=== PATIENT | female | born 1960 | race Caucasian/White ===

== ENCOUNTER 2018-04-02 01:52 | Emergency (ER) | payer OTHER ==
--- NOTE | 2018-04-02 02:26 | ERPHSYRPT ---
- History of Present Illness Time Seen by Provider: 04/02/18 02:15 Source: patient Exam Limitations: no limitations Patient Subjective Stated Complaint: pt stated she woke up to use the bathroom and could feel her heart go into "afib" c/o palpitations, anxiousness, and slight SOB. Triage Nursing Assessment: A/O X4 speech clear, resp easy. no c/o chest pain or disc. O2 sat 98%, monitor 81-114 afib Physician History: This is a 58-year-old white female with history of bronchitis, pneumonia, arrhythmia (atrial fibrillation), hyperlipidemia, high blood pressure, diverticulosis, GERD, hernia, fractures, mitral valve prolapse She states that she gets episodes of atrial fibrillation every year or 2. But normally has a regular rhythm. She states that she was in bed was getting ready to get up to go to the bathroom when she started feeling as if her heart was irregular. She denies any chest pain any shortness of breath she has no nausea no vomiting. Past medical history includes bronchitis, pneumonia, arrhythmia, hyperlipidemia , high blood pressure, diverticulosis, GERD, hernia, fractures, mitral valve prolapse Past surgical history includes cardioversion, several ablation, D&C, tonsillectomy and adenoidectomy Social history patient denies tobacco alcohol or illicit drug use she denies caffeine intake Patient is chronically on Elequis Timing/Duration: today (just prior to arrival) Severity: moderate Modifying Factors: Improves With: nothing Associated Symptoms: other (palpation and irregular heart rate), No nausea, No vomiting, No abdominal pain, No shortness of breath, No heartburn, No diaphoresis, No cough, No chills, No chest pain, No fever, No headaches, No loss of appetite, No malaise, No rash, No syncope, No seizure, No weakness Allergies/Adverse Reactions: Penicillins Allergy (Verified 04/21/16 14:45) Home Medications: Multivitamin [Multivitamins] 1 tab PO DAILY 08/17/14 [History] PANTOPRAZOLE 40 mg Tablet [Protonix 40MG Tablet] 40 mg PO DAILY 08/17/14 [ History] Metoprolol Succinate 25 mg Xl* [Toprol-Xl 25MG Tablets] 25 mg PO DAILY [History] Potassium Gluconate 100 mg PO DAILY 04/21/16 [History] Hx Tetanus, Diphtheria Vaccination/Date Given: No Hx Influenza Vaccination/Date Given: Yes Hx Pneumococcal Vaccination/Date Given: No - Review of Systems Constitutional: No Fever, No Chills Eyes: No Symptoms Ears, Nose, & Throat: No Symptoms Respiratory: No Cough, No Dyspnea Cardiac: Palpitations, No Chest Pain, No Edema, No Syncope, No Orthopnea, No PND Abdominal/Gastrointestinal: No Abdominal Pain, No Nausea, No Vomiting, No Diarrhea Genitourinary Symptoms: No Dysuria Musculoskeletal: No Back Pain, No Neck Pain Skin: No Rash Neurological: No Dizziness, No Focal Weakness, No Sensory Changes Psychological: No Symptoms Endocrine: No Symptoms All Other Systems: Reviewed and Negative - Past Medical History Pertinent Past Medical History: Yes Neurological History: No Pertinent History ENT History: No Pertinent History Cardiac History: Arrhythmia, High Cholesterol, Hypertension Respiratory History: Bronchitis, Pneumonia Endocrine Medical History: No Pertinent History Musculoskeletal History: Fractures GI Medical History: Diverticulitis, Diverticulosis, GERD, Hernia History: No Pertinent History Psycho-Social History: No Pertinent History Female Reproductive Disorders: Other Other Medical History: MVP - Past Surgical History Past Surgical History: Yes Neuro Surgical History: No Pertinent History Cardiac: No Pertinent History Respiratory: No Pertinent History Gastrointestinal: Hernia Repair Genitourinary: No Pertinent History Musculoskeletal: Orthopedic Surgery Female Surgical History: Tubal Ligation Other Surgical History: CARDIOVERSION - THERMAL ABLATION - DandC; T&A - Social History Smoking Status: Never smoker Exposure to second hand smoke: No Drug Use: none Patient Lives Alone: No - Nursing Vital Signs Nursing Vital Signs: Initial Vital Signs Temperature 97.6 F 04/02/18 01:53 Pulse Rate 86 04/02/18 01:53 Respiratory Rate 18 04/02/18 01:53 Blood Pressure 101/68 04/02/18 01:53 O2 Sat by Pulse Oximetry 98 04/02/18 01:53 Pain Scale Pain Intensity 0 - Physical Exam General Appearance: no apparent distress, alert Eye Exam: PERRL/EOMI, eyes nml inspection Ears, Nose, Throat Exam: normal ENT inspection, TMs normal, pharynx normal, moist mucous membranes Neck Exam: normal inspection, non-tender, supple, full range of motion Respiratory Exam: normal breath sounds, lungs clear, No respiratory distress Cardiovascular Exam: normal heart sounds, normal peripheral pulses, capillary refill <2 sec, No regular rate/rhythm (heart irregularly irregular), No murmur Gastrointestinal/Abdomen Exam: soft, normal bowel sounds, No tenderness, No mass Back Exam: normal inspection, normal range of motion, No CVA tenderness, No vertebral tenderness Extremity Exam: normal inspection, normal range of motion, pelvis stable Neurologic Exam: alert, oriented x 3, cooperative, production sanitizer II-XII nml as tested, normal mood/affect, nml cerebellar function, nml station & gait, sensation nml, No motor deficits Skin Exam: normal color, warm, dry, No rash SpO2 Interpretation: normal (98%) SpO2: 98 Oxygen Delivery: Room Air - Course Nursing assessment & vital signs reviewed: Yes EKG Interpreted by Me: RATE (67 bpm), A-fib, NORMAL AXIS, Other (EKG: Atrial fibrillation, 67 bpm, normal axis, no acute ST or T wave changes noted) Ordered Tests: Active Orders 24 hr Category Date Time Status Clinical Account Executive STAT Care 04/02/18 02:20 Active EKG-ER Only STAT Care 04/02/18 02:20 Active EKG-ER Only STAT Care 04/02/18 03:18 Active IV Insertion STAT Care 04/02/18 02:20 Active Pulse Oximetry (ED) STAT Care 04/02/18 02:20 Active CBC W DIFF Stat Lab 04/02/18 02:15 Completed CMP Stat Lab 04/02/18 02:15 Completed TROPONIN Q3H Lab 04/02/18 02:15 Completed TROPONIN Q3H Lab 04/02/18 05:30 Ordered TROPONIN Q3H Lab 04/02/18 08:30 Ordered TROPONIN Q3H Lab 04/02/18 11:30 Ordered TROPONIN Q3H Lab 04/02/18 14:30 Ordered Medication Summary Discontinued Medications Generic Name Dose Route Start Last Admin Trade Name Freq PRN Reason Stop Dose Admin Potassium Chloride 20 meq 04/02/18 03:28 04/02/18 03:32 Klor Con 10 Meq PO 04/02/18 03:29 20 meq STAT ONE Administration Potassium Chloride Confirm 04/02/18 03:31 Klor Con 10 Meq Administered 04/02/18 03:32 Dose 20 meq PO .[facility] ONE Lab/Rad Data: Laboratory Result Diagrams 04/02/18 02:15 04/02/18 02:15 Laboratory Results 04/02/18 04/02/18 04/02/18 Range/Units 02:15 02:15 02:15 WBC 5.8 (4.0-10.5) K/mm3 RBC 4.38 (4.1-5.4) M/mm3 Hgb 13.9 (12.0-16.0) gm/dl Hct 40.9 (35-47) % MCV 93.4 (78-100) fl MCH 31.7 (26-32) pg MCHC 34.0 (32-36) g/dl RDW 12.7 (11.5-14.0) % Plt Count 250 (150-450) K/mm3 MPV 10.5 H (6-9.5) fl Gran % 45.1 (36.0-66.0) % Eos # (Auto) 0.01 (0-0.5) Absolute Lymphs (auto) 2.53 (1.0-4.6) Absolute Monos (auto) 0.66 (0.0-1.3) Lymphocytes % 43.4 (24.0-44.0) % Monocytes % 11.3 (0.0-12.0) % Eosinophils % 0.2 (0.00-5.0) % Basophils % 0.0 (0.0-0.4) % Absolute Granulocytes 2.63 (1.4-6.9) Basophils # 0 (0-0.4) Sodium 139 (137-145) mmol/L Potassium 3.4 L (3.5-5.1) mmol/L Chloride 107 (98-107) mmol/L Carbon Dioxide 25 (22-30) mmol/L Anion Gap 10.4 (5-15) MEQ/L BUN 14 (7-17) mg/dL Creatinine 0.77 (0.52-1.04) mg/dL Estimated GFR > 60.0 ML/MIN Glucose 105 (74-106) mg/dL Calcium 9.3 (8.4-10.2) mg/dL Total Bilirubin 0.30 (0.2-1.3) mg/dL AST 22 (14-36) U/L ALT 29 (0-35) U/L Alkaline Phosphatase 89 (38-126) U/L Troponin I < 0.012 (0.000-0.034) ng/mL Serum Total Protein 6.6 (6.3-8.2) g/dL Albumin 4.0 (3.5-5.0) g/dL - Progress Progress: improved Progress Note: 04/02/18 03:36 This is a 58-year-old white female with history of bronchitis, pneumonia, arrhythmia (atrial fibrillation intermittent), hyperlipidemia, high blood pressure, diverticulosis, GERD, hernia, mitral valve prolapse. Who has had a cardioversion and thermal ablation in the past who states she is not usually in atrial fibrillation but does go into it every year or 2. She states that she's been very busy she went to [place] she just came back she states she was in bed and she started to feel a markedly irregular heart rate which she recognized as atrial fibrillation and came into the emergency room. On arrival the patient had atrial fibrillation 67 bpm patient had stable vital signs she had a pulse ox of 98% she was not any acute distress that she did not have chest pain. Patient is already on Elequis. she is also on Cardizem and metoprolol Patient was not given aspirin she did not have any chest pain Labs including CBC CMP troponin were obtained on this patient. Patient converted spontaneously to a normal sinus rhythm Second EKG obtained at April 02, 2018 at 3:22 AM Is remarkable for normal sinus rhythm 62 bpm normal axis no acute ST or T wave changes normal EKG. Patient's chemistry is remarkable for a mild decreased potassium of 3.4 otherwise normal CBC is normal troponin is less than 0.012. Patient has had no chest pain nausea or shortness of breath she is stable. She has been given 20 mEq of potassium chloride. I've discussed the patient's case with Dr. Lopez he feels that the patient can be sent home due to the fact that she is already on Cardizem metoprolol and Elequis and has a controlled rate and at this time normal sinus rhythm. Patient is to return home she is to rest she is to contact Dr. Casillas for follow -up. She has been advised that if she has any problems she is to follow-up with her family doctor or return. She is to return for acute distress or for severe symptoms. - Departure Time of Disposition: 03:41 Departure Disposition: Home Clinical Impression: Palpitations Atrial fibrillation Qualifiers: Atrial fibrillation type: unspecified Qualified Code(s): I48.91 - Unspecified atrial fibrillation Condition: Fair Critical Care Time: No Referrals: Provider,Unknown [NON-STAFF PHY W/O PRIVILEGES] - Instructions: Arrhythmias (DC), Palpitations (DC) Additional Instructions: Return home, rest, plenty of fluids. Avoid caffeine. Medications as prescribed by your family doctor. Contact your family doctor tomorrow and schedule follow-up appointment. Return for acute distress or severe symptoms. Follow-up with your family doctor or return for any problems.
[2018-04-02 02:38] LABS: Basophil (Absolute #) 0 (0-0.4); Eosinophil % 0.2 % (0.00-5.0); Eosinophil (Absolute #) 0.01 (0-0.5); Granulocyte Absolute (ANC) 2.63 (1.4-6.9); Granulocytes % 45.1 % (36.0-66.0); Hematocrit 40.9 % (35-47); Hemoglobin 13.9 gm/dl (12.0-16.0); Lymphocyte (Absolute #) 2.53 (1.0-4.6); Lymphocytes % 43.4 % (24.0-44.0); Mean Cell Volume 93.4 fl (78-100); Mean Corpuscular Hemoglobin 31.7 pg (26-32); Mean Platelet Volume 10.5 fl (6-9.5); Monocyte (Absolute #) 0.66 (0.0-1.3); Monocytes % 11.3 % (0.0-12.0); Platelet Count 250 K/mm3 (150-450); Red Blood Count 4.38 M/mm3 (4.1-5.4); Red Cell Distribution Width 12.7 % (11.5-14.0); White Blood Count 5.8 K/mm3 (4.0-10.5)
[2018-04-02 02:55] LABS: ALKALINE PHOSPHATASE 89 U/L (38-126); ANION GAP 10.4 MEQ/L (5-15); BLOOD UREA NITROGEN 14 mg/dL (7-17); CHLORIDE 107 mmol/L (98-107); Calcium 9.3 mg/dL (8.4-10.2); Carbon Dioxide 25 mmol/L (22-30); Creatinine 1 0.77 mg/dL (0.52-1.04); Glucose 105 mg/dL (74-106); Potassium 3.4 mmol/L (3.5-5.1); SGOT/AST 22 U/L (14-36); SGPT/ALT 29 U/L (0-35); SODIUM 139 mmol/L (137-145); Total Protein 6.6 g/dL (6.3-8.2)
[2018-04-02] MEDS ORDERED: Klor Con 10 MEQ PO ONE ×2 (03:28→03:31)
[2018-04-02 03:47] VITALS: BP 98/69; PULSE 64; O2SAT 94
== END 2018-04-02 04:01 | disposition home or self-care (01) ==
LOC: ED 01:52
DX: I48.91 Unspecified atrial fibrillation (principal); R00.2 Palpitations; I10 Essential (primary) hypertension; E78.5 Hyperlipidemia, unspecified; Z79.899 Other long term (current) drug therapy
CPT/HCPCS: 36000; 36415; 80053; 84484; 85025; 93005; 93041; 99284; A9270-GY

== ENCOUNTER 2019-02-07 22:09 | Emergency (ER) | payer OTHER ==
[2019-02-07 22:32] LABS: Basophil (Absolute #) 0 (0-0.4); Eosinophil % 0.1 % (0.00-5.0); Eosinophil (Absolute #) 0.01 (0-0.5); Granulocyte Absolute (ANC) 3.02 (1.4-6.9); Granulocytes % 40.6 % (36.0-66.0); Hematocrit 40.3 % (35-47); Hemoglobin 13.8 gm/dl (12.0-16.0); Lymphocyte (Absolute #) 3.62 (1.0-4.6); Lymphocytes % 48.6 % (24.0-44.0); Mean Cell Volume 92.2 fl (78-100); Mean Corpuscular Hemoglobin 31.6 pg (26-32); Mean Corpuscular Hgb Concent. 34.2 g/dl (32-36); Mean Platelet Volume 10.1 fl (6-9.5); Monocytes % 10.7 % (0.0-12.0); Platelet Count 225 K/mm3 (150-450); Red Blood Count 4.37 M/mm3 (4.1-5.4); Red Cell Distribution Width 12.2 % (11.5-14.0); White Blood Count 7.5 K/mm3 (4.0-10.5)
[2019-02-07 22:58] LABS: ALBUMIN 4.4 g/dL (3.5-5.0); ALKALINE PHOSPHATASE 110 U/L (38-126); ANION GAP 13.4 MEQ/L (5-15); BLOOD UREA NITROGEN 16 mg/dL (7-17); CHLORIDE 106 mmol/L (98-107); Calcium 9.6 mg/dL (8.4-10.2); Carbon Dioxide 25 mmol/L (22-30); Creatinine 1 0.72 mg/dL (0.52-1.04); Glucose 140 mg/dL (74-106); NT PRO BNP 95.2 pg/mL (0-900); Potassium 3.3 mmol/L (3.5-5.1); SGOT/AST 38 U/L (14-36); SGPT/ALT 51 U/L (0-35); SODIUM 141 mmol/L (137-145); Total Protein 7.7 g/dL (6.3-8.2)
[2019-02-07] MEDS ORDERED: Klor Con 10 MEQ PO ONE ×2 (23:06→23:09)
--- NOTE | 2019-02-08 00:33 | ERPHSYRPT ---
- History of Present Illness Source: patient Exam Limitations: no limitations Patient Subjective Stated Complaint: Patient states, "My heart is in A-fib". Triage Nursing Assessment: Patient ambulated back to ED and transferred self to bed. Patient A+O X3. Patient's skin pink, warm and dry. Patient complains of her heart being in a-fib. Patient states she was sitting on the couch and felt her heart go into a-fib. Patient states she has a dx of a-fib for a long time. Patient complains of being tired. Patient denies pain or discomofort or SOB. Patient also denies chest pain. lungs clear a/p leah. Heart tones audible and irregular. Physician History: Pt is a 59 y/o female that has a diagnosis of PAF. She is on rate control with Metoprolol, Cardizem and Eliquis as anti coagulant. Pt stated, that she felt her heart getting into A fib, and she presented to the ED. Pt denies chest pain , or SOB, she is feeling uncomfortable feeling the A fib, but denies N/V/D. No F/C/S. No dysuria, frequency and urgency. Timing/Duration: today Activities at Onset: none Severity of Pain-Max: none Severity of Pain-Current: none Modifying Factors: Improves With: nothing Nitro Today/Relief: no nitro taken today Aspirin Treatment Today: no aspirin today Associated Symptoms: denies symptoms Allergies/Adverse Reactions: Penicillins Allergy (Verified 02/07/19 22:23) Home Medications: PANTOPRAZOLE 40 mg Tablet [Protonix 40MG Tablet] 40 mg PO DAILY 08/17/14 [ History] Metoprolol Succinate 25 mg Xl* [Toprol-Xl 25MG Tablets] 50 mg PO DAILY [History] Potassium Gluconate 100 mg PO DAILY 04/21/16 [History] Hx Tetanus, Diphtheria Vaccination/Date Given: No Hx Influenza Vaccination/Date Given: Yes Hx Pneumococcal Vaccination/Date Given: No Immunizations Up to Date: Yes - Review of Systems Constitutional: Fatigue Eyes: No Symptoms Ears, Nose, & Throat: No Symptoms Respiratory: No Cough, No Dyspnea Cardiac: Palpitations Abdominal/Gastrointestinal: No Abdominal Pain, No Nausea, No Vomiting, No Diarrhea Genitourinary Symptoms: No Dysuria Musculoskeletal: No Back Pain, No Neck Pain Neurological: No Dizziness, No Focal Weakness, No Sensory Changes - Past Medical History Pertinent Past Medical History: Yes Neurological History: No Pertinent History ENT History: No Pertinent History Cardiac History: Arrhythmia, High Cholesterol, Hypertension Respiratory History: Bronchitis, Pneumonia Endocrine Medical History: No Pertinent History Musculoskeletal History: Fractures GI Medical History: Diverticulitis, Diverticulosis, GERD, Hernia History: No Pertinent History Psycho-Social History: No Pertinent History Female Reproductive Disorders: Other Other Medical History: MVP - Past Surgical History Past Surgical History: Yes Neuro Surgical History: No Pertinent History Cardiac: No Pertinent History Respiratory: No Pertinent History Gastrointestinal: Hernia Repair Genitourinary: No Pertinent History Musculoskeletal: Orthopedic Surgery Female Surgical History: Tubal Ligation Other Surgical History: CARDIOVERSION - THERMAL ABLATION - DandC; T&A - Social History Smoking Status: Never smoker Exposure to second hand smoke: No Drug Use: none Patient Lives Alone: Yes - Female History Hx Last Menstrual Period: Ablation Hx Now: No - Nursing Vital Signs Nursing Vital Signs: Initial Vital Signs Temperature 98.1 F 02/07/19 22:14 Pulse Rate 108 H 02/07/19 22:14 Respiratory Rate 21 02/07/19 22:14 Blood Pressure 150/100 02/07/19 22:14 O2 Sat by Pulse Oximetry 97 02/07/19 22:14 Pain Scale Pain Intensity 0 - Physical Exam General Appearance: no apparent distress, alert Eye Exam: PERRL/EOMI, eyes nml inspection Ears, Nose, Throat Exam: normal ENT inspection, moist mucous membranes Neck Exam: normal inspection, non-tender, supple Respiratory Exam: normal breath sounds, lungs clear, No respiratory distress Cardiovascular Exam: normal heart sounds, normal peripheral pulses, irregular, capillary refill <2 sec Gastrointestinal/Abdomen Exam: soft, No tenderness, No mass Back Exam: normal inspection, No CVA tenderness, No vertebral tenderness Extremity Exam: normal inspection, normal range of motion Neurologic Exam: alert, oriented x 3, cooperative, normal mood/affect, nml cerebellar function, sensation nml, No motor deficits SpO2: 96 - Course Nursing assessment & vital signs reviewed: Yes Ordered Tests: Active Orders 24 hr Category Date Time Status CBC W DIFF Stat Lab 02/07/19 22:31 Completed CMP Stat Lab 02/07/19 22:31 Completed D-DIMER QUANTITATION Stat Lab 02/07/19 22:31 Completed NT PRO BNP Stat Lab 02/07/19 22:31 Completed TROPONIN Q3H Lab 02/07/19 22:31 Completed TROPONIN Q3H Lab 02/08/19 01:37 Completed TROPONIN Q3H Lab 02/08/19 04:30 Ordered TROPONIN Q3H Lab 02/08/19 07:30 Ordered TROPONIN Q3H Lab 02/08/19 10:30 Ordered Medication Summary Discontinued Medications Generic Name Dose Route Start Last Admin Trade Name Abramq PRN Reason Stop Dose Admin Potassium Chloride 40 meq 02/07/19 23:06 02/07/19 23:10 Klor Con 10 Meq PO 02/07/19 23:07 40 meq STAT ONE Administration Potassium Chloride Confirm 02/07/19 23:09 Klor Con 10 Meq Administered 02/07/19 23:10 Dose 40 meq PO .[facility] ONE Lab/Rad Data: Laboratory Result Diagrams 02/07/19 22:31 02/07/19 22:31 Laboratory Results 02/08/19 02/07/19 02/07/19 Range/Units 01:37 22:31 22:31 WBC (4.0-10.5) K/mm3 RBC (4.1-5.4) M/mm3 Hgb (12.0-16.0) gm/dl Hct (35-47) % MCV (78-100) fl MCH (26-32) pg MCHC (32-36) g/dl RDW (11.5-14.0) % Plt Count (150-450) K/mm3 MPV (6-9.5) fl Gran % (36.0-66.0) % Eos # (Auto) (0-0.5) Absolute Lymphs (auto) (1.0-4.6) Absolute Monos (auto) (0.0-1.3) Lymphocytes % (24.0-44.0) % Monocytes % (0.0-12.0) % Eosinophils % (0.00-5.0) % Basophils % (0.0-0.4) % Absolute Granulocytes (1.4-6.9) Basophils # (0-0.4) D-Dimer 366 (215-500) ng/mL Sodium (137-145) mmol/L Potassium (3.5-5.1) mmol/L Chloride (98-107) mmol/L Carbon Dioxide (22-30) mmol/L Anion Gap (5-15) MEQ/L BUN (7-17) mg/dL Creatinine (0.52-1.04) mg/dL Estimated GFR ML/MIN Glucose (74-106) mg/dL Calcium (8.4-10.2) mg/dL Total Bilirubin (0.2-1.3) mg/dL AST (14-36) U/L ALT (0-35) U/L Alkaline Phosphatase (38-126) U/L Troponin I < 0.012 < 0.012 (0.000-0.034) ng/mL NT-Pro-B Natriuret Pep (0-900) pg/mL Serum Total Protein (6.3-8.2) g/dL Albumin (3.5-5.0) g/dL 02/07/19 02/07/19 Range/Units 22:31 22:31 WBC 7.5 (4.0-10.5) K/mm3 RBC 4.37 (4.1-5.4) M/mm3 Hgb 13.8 (12.0-16.0) gm/dl Hct 40.3 (35-47) % MCV 92.2 (78-100) fl MCH 31.6 (26-32) pg MCHC 34.2 (32-36) g/dl RDW 12.2 (11.5-14.0) % Plt Count 225 (150-450) K/mm3 MPV 10.1 H (6-9.5) fl Gran % 40.6 (36.0-66.0) % Eos # (Auto) 0.01 (0-0.5) Absolute Lymphs (auto) 3.62 (1.0-4.6) Absolute Monos (auto) 0.80 (0.0-1.3) Lymphocytes % 48.6 H (24.0-44.0) % Monocytes % 10.7 (0.0-12.0) % Eosinophils % 0.1 (0.00-5.0) % Basophils % 0.0 (0.0-0.4) % Absolute Granulocytes 3.02 (1.4-6.9) Basophils # 0 (0-0.4) D-Dimer (215-500) ng/mL Sodium 141 (137-145) mmol/L Potassium 3.3 L (3.5-5.1) mmol/L Chloride 106 (98-107) mmol/L Carbon Dioxide 25 (22-30) mmol/L Anion Gap 13.4 (5-15) MEQ/L BUN 16 (7-17) mg/dL Creatinine 0.72 (0.52-1.04) mg/dL Estimated GFR > 60.0 ML/MIN Glucose 140 H (74-106) mg/dL Calcium 9.6 (8.4-10.2) mg/dL Total Bilirubin 0.40 (0.2-1.3) mg/dL AST 38 H (14-36) U/L ALT 51 H (0-35) U/L Alkaline Phosphatase 110 (38-126) U/L Troponin I (0.000-0.034) ng/mL NT-Pro-B Natriuret Pep 95.2 (0-900) pg/mL Serum Total Protein 7.7 (6.3-8.2) g/dL Albumin 4.4 (3.5-5.0) g/dL - Progress Air Movement: good Progress Note: 02/08/19 00:32 Pt was seen and examined. She is in a controlled A fib. She is on rate control meds, and on Eliquis. Labs and first troponins are negative. D dimer is normal as well. Will f/u with second troponin, if negative, will d/c pt to home. 02/08/19 03:16 Pt's second troponin is negative and pt is cleared for d/c. She should continue her meds, and f/u with her Epic Professional. Blood Culture(s) Obtained: No Antibiotics given: No Will see patient in: office Counseled pt/family regarding: need for follow-up - Departure Departure Disposition: Home Clinical Impression: A-fib Condition: Stable Critical Care Time: No Referrals: YANETH FUENTES [Primary Care Provider] - Additional Instructions: F/u with Cardiology. Take your meds as ordered.
[2019-02-08 03:17] VITALS: O2SAT 96
[2019-02-08 03:20] VITALS: BP 97/74; PULSE 72
== END 2019-02-08 03:34 | disposition home or self-care (01) ==
LOC: ED 22:09
DX: I48.91 Unspecified atrial fibrillation (principal); Z79.01 Long term (current) use of anticoagulants
CPT/HCPCS: 36415; 80053; 83880; 84484; 85025; 85379; 99283; A9270-GY